=== PATIENT | male | born 1980 | race African-American/Black ===

== ENCOUNTER 2017-01-10 19:55 | Emergency (ER) | payer SELFPAY ==
[~2017-01-10] VITALS: Ht 188 cm; Wt 90.7 kg
[2017-01-10 20:07] VITALS: BP 121/70
== END 2017-01-10 22:09 | disposition home or self-care (01) ==
LOC: ER 19:58
DX: S46.912A Strain of unspecified muscle, fascia and tendon at shoulder and upper arm level, left arm, initial encounter (principal); S60.222A Contusion of left hand, initial encounter; S60.221A Contusion of right hand, initial encounter; F17.210 Nicotine dependence, cigarettes, uncomplicated; F12.10 Cannabis abuse, uncomplicated; W19.XXXA Unspecified fall, initial encounter; Y93.89 Activity, other specified; Y92.89 Other specified places as the place of occurrence of the external cause; Y99.8 Other external cause status
CPT/HCPCS: 73030; 73130